=== PATIENT | male | born 1985 | race Caucasian/White ===

== ENCOUNTER 2017-02-25 00:56 | Emergency (ER) | payer MEDICARE, MEDICAID ==
[2017-02-25 01:36] LABS: BARBITURATES NEG (NEG); BENZODIAZEPINES NEG (NEG); CANNABINOIDS NEG (NEG); COCAINE NEG (NEG); METHADONE NEG (NEG); OPIATES NEG (NEG); PHENCYCLIDINE NEG (NEG)
[2017-02-25 01:38] LABS: AMPHETAMINE/METHAMPHETAMINE NEG (NEG)
[2017-02-25 01:43] LABS: BASO # 0.1 x10^3/uL (0.0-0.2); BASO % 1 % (0-3); EOS # 0.1 x10^3/uL (0.0-0.7); EOS % 1 % (0-3); HEMATOCRIT 45.2 % (39.0-53.0); HEMOGLOBIN 15.5 g/dL (13.0-17.5); LYMPH # 2.6 x10^3/uL (1.0-4.8); LYMPH % 21 % (24-48); MEAN CORPUSCULAR HEMOGLOBIN 29 pg (25-35); MEAN CORPUSCULAR HGB CONC 34 g/dL (31-37); MEAN CORPUSCULAR VOLUME 85 fL (79-100); MONO # 1.1 x10^3/uL (0.0-1.1); MONO % 9 % (0-9); NEUT # 8.2 x10^3uL (1.8-7.7); NEUT % 69 % (31-73); PLATELET COUNT 281 x10^3/uL (140-400); RED BLOOD COUNT 5.34 x10^6/uL (4.30-5.70); RED CELL DISTRIBUTION WIDTH 12.8 % (11.5-14.5)
[2017-02-25 01:55] LABS: ALBUMIN 4.1 g/dL (3.4-5.0); ALBUMIN/GLOBULIN RATIO 1.1 (1.0-1.7); CALCIUM 9.5 mg/dL (8.5-10.1); CREATININE 1.2 mg/dL (0.7-1.3); GFR 70.6; POTASSIUM 3.5 mmol/L (3.5-5.1); TOTAL BILIRUBIN 0.6 mg/dL (0.2-1.0)
--- NOTE | 2017-02-25 02:09 | PHYS DOC ---
Adult General Chief Complaint Chief Complaint: SUICDAL IDEATION HPI HPI Patient is a 31-year-old male with a past history of schizoaffective affective disorder, discharged from long term today presents with complaints of suicidal ideation. Upon discharge of the present the patient was told to follow-up [facility] which is something he was planning on doing, patient was standing on a homeless detention he had a problem with his cell phone so he had to walk to a store to try to get that taken care of ladpamela found that he could instead, detention again at which point she started having suicidal ideation. When initially interviewed the patient did not have any specific plans but later on he specify where he was transferred due to the nurse. Patient is currently not taking any medications but he has been told that he should be taking Geodon. Patient denies any drugs or alcohol. Has no other complaints. Review of Systems Review of Systems Constitutional: Denies fever or chills [] Eyes: Denies change in visual acuity, redness, or eye pain [] HENT: Denies nasal congestion or sore throat [] Respiratory: Denies cough or shortness of breath [] Cardiovascular: No chest pain GI: Denies abdominal pain, nausea, vomiting, bloody stools or diarrhea [] : Denies dysuria or hematuria [] Musculoskeletal: Denies back pain or joint pain [] Integument: Denies rash or skin lesions [] Neurologic: Denies headache, focal weakness or sensory changes [] Endocrine: Denies polyuria or polydipsia [] Physical Exam Physical Exam Constitutional: Well developed, well nourished, no acute distress, non-toxic appearance. [] HENT: Normocephalic, atraumatic, oropharynx moist, no oral exudates, nose normal. [] Eyes: EOMI, conjunctiva normal, no discharge. [] Neck: Normal range of motion, no tenderness, supple, no stridor. No LAD, no meningeal signs Cardiovascular:Heart rate regular rhythm, no murmur [] Lungs & Thorax: Bilateral breath sounds clear to auscultation [] Abdomen: Bowel sounds normal, soft, no tenderness, no masses, no pulsatile masses. [] Skin: Warm, dry, no erythema, no rash. [] Back: No tenderness, no CVA tenderness. [] Extremities: No tenderness, no cyanosis, no clubbing, ROM intact, no edema. [] Neurologic: Alert and oriented X 3, normal motor function, no focal deficits noted. [] Psychologic: Affect normal, suicidal ideation, anxious, speaking to himself in the room Current Patient Data Lab Results Laboratory Tests Test 02/25/17 01:05 02/25/17 01:30 Urine Opiates Screen Neg (NEG) Urine Methadone Screen Neg (NEG) Urine Barbiturates Neg (NEG) Urine Phencyclidine Screen Neg (NEG) Urine Amphetamine/Methamphetamine Neg (NEG) Urine Benzodiazepines Screen Neg (NEG) Urine Cocaine Screen Neg (NEG) Urine Cannabinoids Screen Neg (NEG) Urine Ethyl Alcohol Neg (NEG) White Blood Count 12.0 x10^3/uL (4.0-11.0) H Red Blood Count 5.34 x10^6/uL (4.30-5.70) Hemoglobin 15.5 g/dL (13.0-17.5) Hematocrit 45.2 % (39.0-53.0) Mean Corpuscular Volume 85 fL (79-100) Mean Corpuscular Hemoglobin 29 pg (25-35) Mean Corpuscular Hemoglobin Concent 34 g/dL (31-37) Red Cell Distribution Width 12.8 % (11.5-14.5) Platelet Count 281 x10^3/uL (140-400) Neutrophils (%) (Auto) 69 % (31-73) Lymphocytes (%) (Auto) 21 % (24-48) L Monocytes (%) (Auto) 9 % (0-9) Eosinophils (%) (Auto) 1 % (0-3) Basophils (%) (Auto) 1 % (0-3) Neutrophils # (Auto) 8.2 x10^3uL (1.8-7.7) H Lymphocytes # (Auto) 2.6 x10^3/uL (1.0-4.8) Monocytes # (Auto) 1.1 x10^3/uL (0.0-1.1) Eosinophils # (Auto) 0.1 x10^3/uL (0.0-0.7) Basophils # (Auto) 0.1 x10^3/uL (0.0-0.2) Sodium Level 143 mmol/L (136-145) Potassium Level 3.5 mmol/L (3.5-5.1) Chloride Level 106 mmol/L (98-107) Carbon Dioxide Level 29 mmol/L (21-32) Anion Gap 8 (6-14) Blood Urea Nitrogen 13 mg/dL (8-26) Creatinine 1.2 mg/dL (0.7-1.3) Estimated GFR (Cockcroft-Gault) 70.6 BUN/Creatinine Ratio 11 (6-20) Glucose Level 90 mg/dL (70-99) Calcium Level 9.5 mg/dL (8.5-10.1) Total Bilirubin 0.6 mg/dL (0.2-1.0) Aspartate Amino Transferase (AST) 31 U/L (15-37) Alanine Aminotransferase (ALT) 23 U/L (16-63) Alkaline Phosphatase 92 U/L (46-116) Total Protein 8.0 g/dL (6.4-8.2) Albumin 4.1 g/dL (3.4-5.0) Albumin/Globulin Ratio 1.1 (1.0-1.7) EKG EKG 84, sinus rhythm, no STEMI, EP interpretation at 0122 [] Radiology/Procedures Radiology/Procedures [] Course & Med Decision Making Course & Med Decision Making Pertinent Labs and Imaging studies reviewed. (See chart for details). Tele psychiatry will be contacted for evaluation with the patient: they recommend placement. 0359 pt still talking to self. Barbara ordered. Looking for placement for patient. [] Dragon Disclaimer Dragon Disclaimer This chart was dictated in whole or in part using Voice Recognition software in a busy, high-work load, and often noisy Emergency Department environment. It may contain unintended and wholly unrecognized errors or omissions. Departure Departure: Impression: Primary Impression: Schizoaffective disorder Additional Impression: Suicidal ideation Disposition: XFER SHT-TRM HOSP Condition: STABLE Problem Qualifiers Reed WHITMORE MD Feb 25, 2017 02:09
[2017-02-25] MEDS ORDERED: ZIPRASIDONE 20 MG CAPSULE. PO ONE ×2 (04:31→05:57)
[2017-02-25] MEDS ORDERED: ZIPRASIDONE 40 MG CAPSULE. PO ONE (06:00)
--- NOTE | 2017-02-25 06:32 | EKG ---
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
[2017-02-25] MEDS ORDERED: LISI2.5T PO (06:54)
[2017-02-25] MEDS ORDERED: ZIPR80CA2 PO (06:55)
[2017-02-25] MEDS ORDERED: SIMV10TA3 PO (06:59)
[2017-02-25 08:00] VITALS: BP 131/68
[2017-02-25] MEDS ORDERED: ZIPRASIDONE 20 MG CAPSULE. PO SCH ×2 (09:00)
== END 2017-02-25 09:25 | disposition short-term general hospital (02) ==
LOC: ER 00:56
DX: F25.9 Schizoaffective disorder, unspecified (principal); R45.851 Suicidal ideations
CPT/HCPCS: 36415; 80053; 80307; 84443; 85027; 93005; 99285-25; G0479

== ENCOUNTER 2018-03-22 21:29 | Inpatient (IN) | payer MEDICARE, MEDICAID ==
[~2018-03-22] VITALS: Ht 177.8 cm; Wt 107.3 kg
[~2018-03-22 21:29] MED LIST: LISI2.5T PO; SIMV10TA3 PO; ZIPR80CA2 PO
--- NOTE | 2018-03-22 21:42 | ED.ADGEN ---
Past History Past Medical History: Bipolar, High Cholesterol, Hypertension, Schizophrenia Past Surgical History: No Surgical History Alcohol Use: None Drug Use: Methamphetamine Adult General Chief Complaint Chief Complaint ". I took some Gold.. it is a drug .. I made it in my kitchen.. I with the MICHELLE ... I am really on a mission right now.. but the stuff I made it helps me.. .. and Saravanan helped me make it... I do have thoughts of suicide.. but not right this minute.. ". " I am better now that I am here.. I don't have the urge... to kill myself right now.. while you are talking.. but it keeps coming back into my brain.. it may be the radio waves... telling me.. The Gold I made in my kitchen labs. ..helps me get a hard on... there is some in that envelope.. you can test it if you want.... It helps me get a hard on.. and... . It helps my Schizophrenia.. I don't get as tired.. but some times it makes my whole body float away.. To night the entire right side of my body was on fire.. I mean like I dipped the entire Rt. side of my body in acid... or boiling water... ... 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 " I need ice cream to cool down the fire on entire right side of my body.. can I have some Ice cream..."... " I just need... the pharmacy companies of [employer].. to sell my Gold.. it's better than [employer].. ".. " God is directing me.. right now... and Gold I mixed up tonight.. give me a really good hard on..." HPI HPI Patient is a 32 year old male who presents with above hx and complaints mental status change. Pt has hx of Pt a PD referral for abnormal behavior after multiple police calls. Pt. has hx of Schizophrenia and Bipolar disorder. Pt appears to behaving active delusional thoughts.. Pt. does admit to use of unknown drugs he mixed up in his kitchen. Pt. very agitated and restless. Pt reports more intrusive thoughts of suicide this past week. Paramedics advised there has been multiple calls on his obvious bizarre behavior . Review of Systems Review of Systems Constitutional: Denies fever or chills [] Eyes: Denies change in visual acuity, redness, or eye pain [] HENT: Denies nasal congestion or sore throat [] Respiratory: Denies cough or shortness of breath [] Cardiovascular: No additional information not addressed in HPI [] GI: Denies abdominal pain, nausea, vomiting, bloody stools or diarrhea [] : Denies dysuria or hematuria [] Musculoskeletal: Denies back pain or joint pain [] Integument: Denies rash or skin lesions [] Neurologic: Denies headache, focal weakness or sensory changes []Complaints of entire Rt side of body on "fire" after ingestion of unknown drugs. Endocrine: Denies polyuria or polydipsia [] All other systems were reviewed and found to be within normal limits, except as documented in this note. Family History Family History Pt. refuses to give family hx. Current Medications Current Medications Current Medications Medications (Trade) Dose Ordered Sig/Judith Start Time Stop Time Status Last Admin Dose Admin Lactated Ringer's 1,000 ml @ 160 mls/hr [id number] 03/22/18 23:00 03/22/18 23:32 160 MLS/HR Lorazepam (Ativan) 2 mg 1X PRN PRN 03/22/18 23:00 Ondansetron HCl (Zofran) 4 mg PRN Q4HRS PRN 03/22/18 23:00 03/23/18 22:59 Allergies Allergies Allergies Coded Allergies Type Severity Reaction Last Updated Verified No Known Drug Allergies 02/25/17 No Physical Exam Physical Exam Constitutional: in acute emotional distress, very agitated in appearance. [] Pressured speech. Unable to stay on topic. HENT: Normocephalic, atraumatic, bilateral external ears normal, oropharynx moist, no oral exudates, nose normal. [] Eyes: PERRLA, EOMI, conjunctiva normal, no discharge. [] Neck: Normal range of motion, no tenderness, supple, no stridor. [] Cardiovascular:Tachycardia Heart rate regular rhythm, no murmur [] Lungs & Thorax: Bilateral breath sounds equal at apex on auscultation [] Abdomen: Bowel sounds normal, soft, no tenderness, no masses, no pulsatile masses. [] Skin: Warm, dry, no erythema, no rash. [] Back: No tenderness, no CVA tenderness. [] Extremities: No tenderness, no cyanosis, no clubbing, ROM intact, no edema. [] Neurologic: Alert and oriented X 3, normal motor function, normal sensory function, no focal deficits noted. []DTR + 2 patella and brachial. Ambulatory. Psychologic: Affect very agitated, judgement is impairment, mood vacillates between depression and hypermania Current Patient Data Vital Signs Vital Signs Date Time Temp Pulse Resp B/P (MAP) Pulse Ox O2 Delivery O2 Flow Rate FiO2 03/22/18 22:32 94 20 154/101 (118) 99 Room Air 03/22/18 21:29 98.1 Lab Results Laboratory Tests Test 03/22/18 21:38 03/22/18 21:56 Urine Collection Type Unknown Urine Color Yellow Urine Clarity Clear Urine pH 6.0 Urine Specific [place] 1.015 Urine Protein Neg (NEG-TRACE) Urine Glucose (UA) Neg mg/dL (NEG) Urine Ketones (Stick) Neg mg/dL (NEG) Urine Blood Neg (NEG) Urine Nitrite Neg (NEG) Urine Bilirubin Neg (NEG) Urine Urobilinogen Dipstick 0.2 mg/dL (0.2 mg/dL) Urine Leukocyte Esterase Neg (NEG) Urine RBC 0 /HPF (0-2) Urine WBC 0 /HPF (0-4) Urine Squamous Epithelial Cells Occ /LPF Urine Bacteria 0 /HPF (0-FEW) Urine Opiates Screen Neg (NEG) Urine Methadone Screen Neg (NEG) Urine Barbiturates Neg (NEG) Urine Phencyclidine Screen Neg (NEG) Urine Amphetamine/Methamphetamine Pos (NEG) Urine Benzodiazepines Screen Neg (NEG) Urine Cocaine Screen Neg (NEG) Urine Cannabinoids Screen Neg (NEG) Urine Ethyl Alcohol Neg (NEG) White Blood Count 13.8 x10^3/uL (4.0-11.0) H Red Blood Count 5.58 x10^6/uL (4.30-5.70) Hemoglobin 15.8 g/dL (13.0-17.5) Hematocrit 46.3 % (39.0-53.0) Mean Corpuscular Volume 83 fL (79-100) Mean Corpuscular Hemoglobin 28 pg (25-35) Mean Corpuscular Hemoglobin Concent 34 g/dL (31-37) Red Cell Distribution Width 14.4 % (11.5-14.5) Platelet Count 388 x10^3/uL (140-400) Neutrophils (%) (Auto) 68 % (31-73) Lymphocytes (%) (Auto) 20 % (24-48) L Monocytes (%) (Auto) 10 % (0-9) H Eosinophils (%) (Auto) 2 % (0-3) Basophils (%) (Auto) 1 % (0-3) Neutrophils # (Auto) 9.3 x10^3uL (1.8-7.7) H Lymphocytes # (Auto) 2.7 x10^3/uL (1.0-4.8) Monocytes # (Auto) 1.3 x10^3/uL (0.0-1.1) H Eosinophils # (Auto) 0.2 x10^3/uL (0.0-0.7) Basophils # (Auto) 0.2 x10^3/uL (0.0-0.2) Erythrocyte Sedimentation Rate 8 (0-15) Prothrombin Time 9.4 SEC (9.4-11.4) Prothrombin Time INR 0.9 (0.9-1.1) PTT 23 SEC (23-33) Sodium Level 141 mmol/L (136-145) Potassium Level 4.3 mmol/L (3.5-5.1) Chloride Level 105 mmol/L (98-107) Carbon Dioxide Level 28 mmol/L (21-32) Anion Gap 8 (6-14) Blood Urea Nitrogen 10 mg/dL (8-26) Creatinine 1.0 mg/dL (0.7-1.3) Estimated GFR (Cockcroft-Gault) 86.6 Glucose Level 108 mg/dL (70-99) H Calcium Level 9.2 mg/dL (8.5-10.1) Magnesium Level 2.2 mg/dL (1.8-2.4) Creatine Kinase 203 U/L (39-308) Creatine Kinase MB (Mass) 2.2 ng/mL (0.0-3.6) Creatine Kinase MB Relative Index 1.1 % (0-4) Troponin I Quantitative < 0.017 ng/mL (0-0.055) PU-Vql-I-Type Natriuretic Peptide 6 pg/mL (0-124) Salicylates Level 4.9 mg/dL (2.8-20.0) Salicylate Last Dose Date Unknown Salicylate Last Dose Time Unknown Acetaminophen Level < 2.0 mcg/mL (10-30) L Acetaminophen Last Dose Date Unknown Acetaminophen Last Dose Time Unknown Ethyl Alcohol Level < 10 mg/dL (0-10) EKG EKG My interpretation EKG shows a sinus rhythm at 93 bpm. There is left axis. Nonspecific contour abnormalities anterior septal region. But no findings acute STEMI of contralateral changes Radiology/Procedures Radiology/Procedures My interpretation CT of head shows no shift, mass, edema, bleed, or fracture.[] Course & Med Decision Making Course & Med Decision Making Pertinent Labs and Imaging studies reviewed. (See chart for details) Discussed presentation, testing and tx. plan with Dr. Lemus- Pt. admitted until possible toxic ingestion - can be determined. Serial neuro checks. Psych consult, telemetry psych or Dr. Carter consult. [] Final Impression Final Impression 1. Ingestion Unknown Substance 2. Psychosis- Acute Exacerbation 3. Suicidal ideation 4. Leukocytosis 5. Methamphetamine Use+ Urine test 6. Mental Status Change 7. Hx. of Bipolar Dragon Disclaimer Dragon Disclaimer This electronic medical record was generated, in whole or in part, using a voice recognition dictation system. KEVIN PARRY MD Mar 22, 2018 21:42
[2018-03-22 22:03] LABS: AMPHETAMINE/METHAMPHETAMINE POS (NEG); BARBITURATES NEG (NEG); BENZODIAZEPINES NEG (NEG); CANNABINOIDS NEG (NEG); COCAINE NEG (NEG); METHADONE NEG (NEG); OPIATES NEG (NEG); PHENCYCLIDINE NEG (NEG)
--- NOTE | 2018-03-22 22:05 | EKG ---
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
[2018-03-22 22:13] LABS: BASO # 0.2 x10^3/uL (0.0-0.2); BASO % 1 % (0-3); EOS # 0.2 x10^3/uL (0.0-0.7); EOS % 2 % (0-3); HEMATOCRIT 46.3 % (39.0-53.0); HEMOGLOBIN 15.8 g/dL (13.0-17.5); LYMPH # 2.7 x10^3/uL (1.0-4.8); LYMPH % 20 % (24-48); MEAN CORPUSCULAR HEMOGLOBIN 28 pg (25-35); MEAN CORPUSCULAR HGB CONC 34 g/dL (31-37); MEAN CORPUSCULAR VOLUME 83 fL (79-100); MONO # 1.3 x10^3/uL (0.0-1.1); MONO % 10 % (0-9); NEUT # 9.3 x10^3uL (1.8-7.7); NEUT % 68 % (31-73); PLATELET COUNT 388 x10^3/uL (140-400); RED BLOOD COUNT 5.58 x10^6/uL (4.30-5.70); RED CELL DISTRIBUTION WIDTH 14.4 % (11.5-14.5); WHITE BLOOD COUNT 13.8 x10^3/uL (4.0-11.0)
[2018-03-22 22:20] LABS: BILIRUBIN,URINE NEG (NEG); CLARITY,URINE CLEAR; COLOR,URINE YELLOW; GLUCOSE,URINE NEG (NEG)
[2018-03-22 22:21] LABS: BACTERIA,URINE 0 /HPF (0-FEW); NITRITE,URINE NEG (NEG); RBC,URINE 0 /HPF (0-2); SQUAMOUS EPITHELIAL CELL,UR OCC /LPF; UROBILINOGEN,URINE 0.2 mg/dL (0.2 mg/dL); WBC,URINE 0 /HPF (0-4)
[2018-03-22 22:33] LABS: CALCIUM 9.2 mg/dL (8.5-10.1); GFR 86.6; MAGNESIUM 2.2 mg/dL (1.8-2.4)
--- NOTE | 2018-03-22 22:33 | RAD ---
CT Head W/O Contrast: History: Altered mental status, confusion, headache, neck pain Comparison: none Axial images were obtained without contrast. The arboleda and white matter appears normal and symmetrical for the patients age. There is no mass effect, extraaxial fluid collections or hydrocephalus. There is no gross bleed. There is no focal loss of arboleda-white matter distinction to suggest acute ischemia, i.e. stroke. Impression: No acute findings. End impression CT C-Spine without contrast: Clinical History: Altered mental status, confusion, headache, neck pain Technique: Axial helical images of the cervical spine were obtained without contrast, axial coronal and sagittal reconstruction was performed. Findings: There is no loss of vertebral body stature. There is no prevertebral soft tissue swelling. The vertebral bodies are well aligned. The C1-C2 relationship is normal. The visualized osseous structures appear normal. There is reversal of the normal cervical lordosis which can be positional or can be secondary to muscle spasm. Evaluation of the central canal is limited without contrast. Impression: No acute findings. Clinical correlation suggested. PQRS Compliance Statement: One or more of the following individualized dose reduction techniques were utilized for this examination: 1. Automated exposure control 2. Adjustment of the mA and/or kV according to patient size 3. Use of iterative reconstruction technique Electronically signed by: Boo Wong III, MD (03/22/2018 10:30 PM) [id number]
[2018-03-22 22:34] LABS: POTASSIUM 4.3 mmol/L (3.5-5.1)
[2018-03-22] MEDS ORDERED: LORazepam 2 MG/ML VIAL IV ONE (23:00)
[2018-03-22] MEDS ORDERED: ONDANSETRON PF 4 MG/2 ML VIAL. IV PRN (23:00)
[2018-03-22] MEDS ORDERED: LORazepam 2 MG/ML VIAL IV PRN (23:00)
[2018-03-22 23:18] LABS: SEDIMENTATION RATE 8 (0-15)
[2018-03-22] MEDS: IV RINGERS SOLUTION,LACTATED 1,000 ML IV SCH (23:32)
[2018-03-22 23:37] LABS: SALIC 4.9 mg/dL (2.8-20.0)
[2018-03-22 23:38] LABS: ACETAMIN < 2.0 mcg/mL (10-30)
[2018-03-22 23:43] VITALS: BP 139/90
[2018-03-23] MEDS ORDERED: HYDR30TA PO (00:18)
[2018-03-23] MEDS ORDERED: LISD70CA5 PO (00:18)
--- NOTE | 2018-03-23 04:11 | RAD ---
PORTABLE CHEST 1V Clinical Indication: Altered mental status, confusion, headache, neck pain Comparison: None. Findings: The cardiomediastinal silhouette is normal. Lungs are clear. There is no pneumothorax. No pleural effusion is appreciated. No acute bone abnormality. IMPRESSION: No acute cardiopulmonary process. Electronically signed by: Richar Ventura MD (03/23/2018 4:08 AM) [facility]
[2018-03-23 04:14] LABS: BASO # 0.1 x10^3/uL (0.0-0.2); BASO % 1 % (0-3); EOS # 0.2 x10^3/uL (0.0-0.7); EOS % 2 % (0-3); HEMATOCRIT 44.2 % (39.0-53.0); HEMOGLOBIN 15.2 g/dL (13.0-17.5); LYMPH # 2.8 x10^3/uL (1.0-4.8); LYMPH % 25 % (24-48); MEAN CORPUSCULAR HEMOGLOBIN 29 pg (25-35); MEAN CORPUSCULAR HGB CONC 34 g/dL (31-37); MEAN CORPUSCULAR VOLUME 83 fL (79-100); MONO # 0.9 x10^3/uL (0.0-1.1); MONO % 8 % (0-9); NEUT # 7.2 x10^3uL (1.8-7.7); NEUT % 64 % (31-73); PLATELET COUNT 348 x10^3/uL (140-400); RED BLOOD COUNT 5.31 x10^6/uL (4.30-5.70); RED CELL DISTRIBUTION WIDTH 14.3 % (11.5-14.5); WHITE BLOOD COUNT 11.2 x10^3/uL (4.0-11.0)
[2018-03-23 04:30] LABS: GFR 86.6; POTASSIUM 3.7 mmol/L (3.5-5.1)
[2018-03-23 04:31] LABS: SALIC 3.7 mg/dL (2.8-20.0)
[2018-03-23 04:40] LABS: ACETAMIN < 2.0 mcg/mL (10-30)
[2018-03-23 05:28] VITALS: BP 131/81
[2018-03-23] MEDS: IV RINGERS SOLUTION,LACTATED 1,000 ML IV SCH ×3 (06:03→17:30)
[2018-03-23 11:05] VITALS: BP 134/81
[2018-03-23] MEDS ORDERED: CYCLOBENZAPRINE 10 MG TABLET. PO PRN (14:15)
[2018-03-23] MEDS: LORazepam 1 MG TABLET PO PRN (14:41)
[2018-03-23] MEDS ORDERED: ZIPRASIDONE 40 MG CAPSULE. PO SCH ×2 (14:45→21:00)
--- NOTE | 2018-03-23 15:40 | HP ---
ADMIT DATE: 03/23/2018 HISTORY OF PRESENT ILLNESS: The patient is a 32-year-old male patient who came to the Emergency Room complaining that he took some gold, it is a drug that he made in his kitchen, as he works with [employer] and basically he was on a mission and the stuff that he made helps him and that Saravanan helped him make it. He stated that he does have thoughts of suicide, but not right that minute, but the thought of suicide keeps coming back to his brain and he thinks that might be the radio waves telling him the gold that he made in his kitchen helps him get ____ and also basically helps him maintain erection and also helps his schizophrenia. He does not get as tired, but sometimes makes his whole body float away and apparently last night, the whole night, his body was on fire, feeling as if he dipped his entire right side of his body in acid or boiling water and in fact he wanted some ice cream to cool down the entire right side of his body. He actually wanted the pharmacy that makes Barbara to sell his gold as it is better than Geodon and God is the one directing him to make it. The patient was evaluated in the Emergency Room and the paramedics advised that there have been multiple calls on his obvious bizarre behavior. When he arrived, he was extremely agitated and restless and was found to be psychotic. His tox screen was positive for amphetamine, methamphetamine; however, it was negative for all other drugs and was admitted. He was also found to have mild leukocytosis. PAST SURGICAL HISTORY: Significant for bipolar disorder and schizophrenia. FAMILY HISTORY: The patient refused to disclose any information about his family. SOCIAL HISTORY: He said he lives in [place]. He did not elaborate. 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 He claims that he works for [employer]. ALLERGIES: He has no known drug allergies. MEDICATIONS: He stated that he used to be on Vyvanse, Hysingla, and Geodon. Apparently, he was unable to have with him, although he could not specifically tell from where or who prescribed these medications for him. He is actually on Hysingla extended release 30 mg daily and ziprasidone 80 mg once a day and Vyvanse 70 mg daily. REVIEW OF SYSTEMS: Unobtainable. The patient was unwilling to elaborate more. PHYSICAL EXAMINATION: GENERAL: On examining him on arrival, he apparently was restless, agitated, but there were no pallor, jaundice, cyanosis, or thyromegaly. No jugular venous distention. No limb edema. VITAL SIGNS: His heart rate was 96, blood pressure was 151/97, temperature was 98.1, respiratory rate was 18, and oxygen saturation was 96%. HEAD, EYES, EARS, NOSE, AND THROAT: Showed normocephalic, atraumatic. NECK: Supple. HEART: Showed normal first and second heart sounds with no gallop, rub, or murmur. CHEST: Clear to auscultation. No crepitation or rhonchi. ABDOMEN: Distended, soft, nontender. No guarding or rigidity. No organomegaly. All hernial orifices intact. Bowel sounds normal. NEUROLOGIC: He is very agitated, psychotic, but without any obvious lateralizing sign. All his cranial nerves intact. He moves extremities without difficulty. LABORATORY DATA: His lab work on admission showed a white cell count of 13,800, hemoglobin 15.8, hematocrit 46.3, MCV 83, and platelet count of 388,000. His chemistry showed a serum sodium of 141, potassium 4.3, chloride 105, bicarbonate 28, anion gap of 8, BUN 15, creatinine 1, estimated GFR was 86 mL per minute, his glucose was 108. Calcium was 9.2, magnesium 2.2. His CK was 203 and first set of cardiac enzymes showed troponin to be less than 0.017. His prothrombin time was 9.4, INR of 0.9, aPTT was 23. Urinalysis showed the urine was yellow, clear with a pH of 6, specific gravity of 1.015. The urine was negative for protein, glucose, ketones, blood, nitrite, and leukocyte esterase. There are no rbc's, no wbc's, and no bacteria. His tox screen was positive for amphetamine and methamphetamine but was negative for opiate, methadone, barbiturates, phencyclidine, benzodiazepine, cocaine, cannabinoids, and alcohol. ASSESSMENT AND PLAN: The patient was admitted with polysubstance abuse and claims that he has some kind of gold, acute psychosis and suicidal ideation, leukocytosis, methamphetamine abuse, and bipolar/schizophrenia. The patient was given Ativan and IV fluids and will be admitted. We will consult Dr. Carter and perhaps also the [facility]. He apparently was admitted before to [facility] for similar problem. RICHI BELTRÁN MD DR: DAVID/sanaz JOB#: [id number] / [id number]
[2018-03-23 15:52] VITALS: BP 137/79
--- NOTE | 2018-03-23 18:43 | PDOC ---
Exam Note: Dwight Note: Please also refer to the separate dictated note~for this date of service dictated separately.~Patient seen individually. Discussed the patient with Nursing staff reviewed the chart.~Reviewed interim history and current functioning. Reviewed vital signs,~Labs/ Radiology~and current medications noted below. Continue current treatment with the changes noted in the dictated addendum note Assessment: Vital Signs: Vital Signs Date Time Temp Pulse Resp B/P (MAP) Pulse Ox O2 Delivery O2 Flow Rate FiO2 03/23/18 15:52 99.1 79 16 137/79 (98) 94 Room Air I&O Intake and Output 03/23/18 07:00 Intake Total 2680 ml Balance 2680 ml Intake Oral 1680 ml IV Total 1000 ml # Voids 2 Labs: Laboratory Tests Test 03/22/18 21:38 03/22/18 21:56 03/23/18 04:05 Urine Collection Type Unknown Urine Color Yellow Urine Clarity Clear Urine pH 6.0 Urine Specific [place] 1.015 Urine Protein Neg (NEG-TRACE) Urine Glucose (UA) Neg mg/dL (NEG) Urine Ketones (Stick) Neg mg/dL (NEG) Urine Blood Neg (NEG) Urine Nitrite Neg (NEG) Urine Bilirubin Neg (NEG) Urine Urobilinogen Dipstick 0.2 mg/dL (0.2 mg/dL) Urine Leukocyte Esterase Neg (NEG) Urine RBC 0 /HPF (0-2) Urine WBC 0 /HPF (0-4) Urine Squamous Epithelial Cells Occ /LPF Urine Bacteria 0 /HPF (0-FEW) Urine Opiates Screen Neg (NEG) Urine Methadone Screen Neg (NEG) Urine Barbiturates Neg (NEG) Urine Phencyclidine Screen Neg (NEG) Urine Amphetamine/Methamphetamine Pos (NEG) Urine Benzodiazepines Screen Neg (NEG) Urine Cocaine Screen Neg (NEG) Urine Cannabinoids Screen Neg (NEG) Urine Ethyl Alcohol Neg (NEG) White Blood Count 13.8 x10^3/uL (4.0-11.0) H 11.2 x10^3/uL (4.0-11.0) H Red Blood Count 5.58 x10^6/uL (4.30-5.70) 5.31 x10^6/uL (4.30-5.70) Hemoglobin 15.8 g/dL (13.0-17.5) 15.2 g/dL (13.0-17.5) Hematocrit 46.3 % (39.0-53.0) 44.2 % (39.0-53.0) Mean Corpuscular Volume 83 fL (79-100) 83 fL (79-100) Mean Corpuscular Hemoglobin 28 pg (25-35) 29 pg (25-35) Mean Corpuscular Hemoglobin Concent 34 g/dL (31-37) 34 g/dL (31-37) Red Cell Distribution Width 14.4 % (11.5-14.5) 14.3 % (11.5-14.5) Platelet Count 388 x10^3/uL (140-400) 348 x10^3/uL (140-400) Neutrophils (%) (Auto) 68 % (31-73) 64 % (31-73) Lymphocytes (%) (Auto) 20 % (24-48) L 25 % (24-48) Monocytes (%) (Auto) 10 % (0-9) H 8 % (0-9) Eosinophils (%) (Auto) 2 % (0-3) 2 % (0-3) Basophils (%) (Auto) 1 % (0-3) 1 % (0-3) Neutrophils # (Auto) 9.3 x10^3uL (1.8-7.7) H 7.2 x10^3uL (1.8-7.7) Lymphocytes # (Auto) 2.7 x10^3/uL (1.0-4.8) 2.8 x10^3/uL (1.0-4.8) Monocytes # (Auto) 1.3 x10^3/uL (0.0-1.1) H 0.9 x10^3/uL (0.0-1.1) Eosinophils # (Auto) 0.2 x10^3/uL (0.0-0.7) 0.2 x10^3/uL (0.0-0.7) Basophils # (Auto) 0.2 x10^3/uL (0.0-0.2) 0.1 x10^3/uL (0.0-0.2) Erythrocyte Sedimentation Rate 8 (0-15) Prothrombin Time 9.4 SEC (9.4-11.4) Prothrombin Time INR 0.9 (0.9-1.1) PTT 23 SEC (23-33) Sodium Level 141 mmol/L (136-145) 141 mmol/L (136-145) Potassium Level 4.3 mmol/L (3.5-5.1) 3.7 mmol/L (3.5-5.1) Chloride Level 105 mmol/L (98-107) 106 mmol/L (98-107) Carbon Dioxide Level 28 mmol/L (21-32) 26 mmol/L (21-32) Anion Gap 8 (6-14) 9 (6-14) Blood Urea Nitrogen 10 mg/dL (8-26) 9 mg/dL (8-26) Creatinine 1.0 mg/dL (0.7-1.3) 1.0 mg/dL (0.7-1.3) Estimated GFR (Cockcroft-Gault) 86.6 86.6 Glucose Level 108 mg/dL (70-99) H 130 mg/dL (70-99) H Calcium Level 9.2 mg/dL (8.5-10.1) 9.0 mg/dL (8.5-10.1) Magnesium Level 2.2 mg/dL (1.8-2.4) Creatine Kinase 203 U/L (39-308) Creatine Kinase MB (Mass) 2.2 ng/mL (0.0-3.6) Creatine Kinase MB Relative Index 1.1 % (0-4) Troponin I Quantitative < 0.017 ng/mL (0-0.055) MO-Pbu-J-Type Natriuretic Peptide 6 pg/mL (0-124) Salicylates Level 4.9 mg/dL (2.8-20.0) 3.7 mg/dL (2.8-20.0) Salicylate Last Dose Date Unknown Unknown Salicylate Last Dose Time Unknown Unknown Acetaminophen Level < 2.0 mcg/mL (10-30) L < 2.0 mcg/mL (10-30) L Acetaminophen Last Dose Date Unknown Unknown Acetaminophen Last Dose Time Unknown Unknown Ethyl Alcohol Level < 10 mg/dL (0-10) Current Medications: Meds: Current Medications Ondansetron HCl (Zofran) 4 mg PRN Q4HRS PRN IV NAUSEA/VOMITING; Start 03/22/18 at 23:00; Stop 03/23/18 at 22:59 Lorazepam (Ativan) 2 mg 1X ONCE IV Last administered on 03/22/18at 23:32; Start 03/22/18 at 23:00; Stop 03/22/18 at 23:06; Status DC Lorazepam (Ativan) 2 mg 1X PRN PRN IV severe agitation; Start 03/22/18 at 23:00 Lactated Ringer's 1,000 ml @ 160 mls/hr Q6H15M IV Last administered on at 12:19; Start 03/22/18 at 23:00 Lorazepam (Ativan) 2 mg PRN Q4HRS PRN PO ANXIETY / AGITATION Last administered on 03/23/18at 14:41; Start 03/23/18 at 14:15 Cyclobenzaprine HCl (Flexeril) 10 mg PRN Q6HRS PRN PO MUSCLE SPASMS Last administered on 03/23/18at 14:41; Start 03/23/18 at 14:15 Ziprasidone (Geodon) 40 mg DAILY PO ; Start 03/23/18 at 14:45; Stop 03/23/18 at 15:36; Status DC Ziprasidone (Geodon) 40 mg HS PO ; Start 03/23/18 at 21:00 Active Scripts Active Reported Hysingla ER (Hydrocodone Bitartrate) 30 Mg Tab.er.24h 30 Mg PO DAILY Vyvanse (Lisdexamfetamine Dimesylate) 70 Mg Capsule 1 Tab PO DAILY Geodon (Ziprasidone Hcl) 80 Mg Capsule 80 Mg PO I have reviewed the current psychotropics carefully including drug interactions. Risk benefit ratio favors no change other than as noted in my dictated progress note. Diagnosis: Problems: (1) Schizoaffective disorder, bipolar type (2) Schizophrenia, disorganized, subchronic with acute exacerbation (3) Psychosis, atypical LINDSAY JONES MD Mar 23, 2018 18:43
[2018-03-23 19:57] VITALS: BP 128/87
[2018-03-23 23:34] VITALS: BP 137/90
[2018-03-24] MEDS: IV RINGERS SOLUTION,LACTATED 1,000 ML IV SCH ×2 (00:58→06:15)
--- NOTE | 2018-03-24 01:47 | PN ---
DATE: 03/23/2018 SUBJECTIVE: The patient is resting flat, comfortably, continued to be extremely psychotic, easily agitated, restless, wanting his Ativan and muscle relaxant to calm him down as he ran out of his Hysingla, Geodon and Vyvanse. He was not really very cooperative and gets very very agitated. PHYSICAL EXAMINATION: GENERAL: However, he was resting flat in bed, in no apparent respiratory distress. No pallor, jaundice, cyanosis or thyromegaly. No jugular venous distention. No limb edema. VITAL SIGNS: His heart rate was 78, blood pressure 134/81, temperature was 97.1, respiratory rate was 16 and oxygen saturation was 94%. HEAD, EYES, EARS, NOSE AND THROAT: Showed normocephalic, atraumatic. NECK: Supple. HEART: Showed normal first and second heart sounds with no gallop, rub or murmur. CHEST: Clear to auscultation. No crepitation or rhonchi. ABDOMEN: Distended, soft, nontender. No guarding or rigidity. No organomegaly. Hernial orifice intact. Bowel sounds normal. NEUROLOGIC: He was awake, alert, responding at times appropriately, gets easily agitated. All his cranial nerves are intact. He moves extremities without difficulty. His intake was 2618, no output was recorded. LABORATORY DATA: His lab work this morning showed a white cell count of 11,200, hemoglobin 15, hematocrit 44, MCV 83 and platelet count 348,000. His chemistry showed a serum sodium 141, potassium 3.7, chloride 106, bicarbonate 26, anion gap of 9, BUN 9, creatinine 1. Estimated GFR was 87 mL per minute. His glucose 130, calcium was 9. ASSESSMENT: Again, the patient continued to be psychotic, very paranoid and delusional, thinks that he is able to communicate with other people, since he works with [employer], he can influence other people. He hears voices of all peoples and can read their mind, all this gives credit to gold that he swallowed yesterday. He has also leukocytosis. Denied any suicidal ideation today. PLAN: My plan is to continue with Ativan and start him on Flexeril. I am not sure that we have Hysingla or Vyvanse here, but we could start him back on his Geodon. I have consulted Dr. Carter and we will also contact the [facility] to come and evaluate him. RICHI BELTRÁN MD DR: DAVID/sanaz JOB#: [id number] / [id number]
[2018-03-24 05:38] VITALS: BP 118/80
[2018-03-24] MEDS: risperiDONE 1 MG TABLET. PO SCH (08:10)
[2018-03-24] MEDS: LORazepam 1 MG TABLET PO PRN ×2 (11:00→22:33)
[2018-03-24 13:09] LABS: BARBITURATES NEG (NEG); BENZODIAZEPINES NEG (NEG); CANNABINOIDS NEG (NEG); COCAINE NEG (NEG); METHADONE NEG (NEG); OPIATES NEG (NEG); PHENCYCLIDINE NEG (NEG)
[2018-03-24 13:13] LABS: AMPHETAMINE/METHAMPHETAMINE POS (NEG)
[2018-03-24 13:57] LABS: HEMATOCRIT 44.2 % (39.0-53.0); HEMOGLOBIN 14.9 g/dL (13.0-17.5); RED BLOOD COUNT 5.32 x10^6/uL (4.30-5.70); WHITE BLOOD COUNT 10.9 x10^3/uL (4.0-11.0)
[2018-03-24 14:11] LABS: ALBUMIN 2.9 g/dL (3.4-5.0); ALBUMIN/GLOBULIN RATIO 0.8 (1.0-1.7); CALCIUM 8.8 mg/dL (8.5-10.1); GFR 86.1; POTASSIUM 4.3 mmol/L (3.5-5.1); TOTAL BILIRUBIN 0.2 mg/dL (0.2-1.0); TOTAL PROTEIN 6.4 g/dL (6.4-8.2)
[2018-03-24 14:43] VITALS: BP 139/88
--- NOTE | 2018-03-24 18:52 | PDOC ---
Exam Note: Dwight Note: Please also refer to the separate dictated note~for this date of service dictated separately.~Patient seen individually. Discussed the patient with Nursing staff reviewed the chart.~Reviewed interim history and current functioning. Reviewed vital signs,~Labs/ Radiology~and current medications noted below. Continue current treatment with the changes noted in the dictated addendum note Assessment: Vital Signs: Vital Signs Date Time Temp Pulse Resp B/P (MAP) Pulse Ox O2 Delivery O2 Flow Rate FiO2 03/24/18 14:43 98.7 56 14 139/88 (105) 94 Room Air I&O Intake and Output 03/24/18 07:00 Intake Total 4274.35 ml Balance 4274.35 ml Intake Oral 1320 ml IV Total 2954.35 ml # Voids 2 Labs: Laboratory Tests Test 03/24/18 12:53 03/24/18 13:52 Urine Opiates Screen Neg (NEG) Urine Methadone Screen Neg (NEG) Urine Barbiturates Neg (NEG) Urine Phencyclidine Screen Neg (NEG) Urine Amphetamine/Methamphetamine Pos (NEG) Urine Benzodiazepines Screen Neg (NEG) Urine Cocaine Screen Neg (NEG) Urine Cannabinoids Screen Neg (NEG) Urine Ethyl Alcohol Neg (NEG) White Blood Count 10.9 x10^3/uL (4.0-11.0) Red Blood Count 5.32 x10^6/uL (4.30-5.70) Hemoglobin 14.9 g/dL (13.0-17.5) Hematocrit 44.2 % (39.0-53.0) Mean Corpuscular Volume 83 fL (79-100) Mean Corpuscular Hemoglobin 28 pg (25-35) Mean Corpuscular Hemoglobin Concent 34 g/dL (31-37) Red Cell Distribution Width 14.0 % (11.5-14.5) Platelet Count 341 x10^3/uL (140-400) Sodium Level 140 mmol/L (136-145) Potassium Level 4.3 mmol/L (3.5-5.1) Chloride Level 106 mmol/L (98-107) Carbon Dioxide Level 30 mmol/L (21-32) Anion Gap 4 (6-14) L Blood Urea Nitrogen 8 mg/dL (8-26) Creatinine 1.0 mg/dL (0.7-1.3) Estimated GFR (Cockcroft-Gault) 86.1 BUN/Creatinine Ratio 8 (6-20) Glucose Level 94 mg/dL (70-99) Calcium Level 8.8 mg/dL (8.5-10.1) Total Bilirubin 0.2 mg/dL (0.2-1.0) Aspartate Amino Transferase (AST) 14 U/L (15-37) L Alanine Aminotransferase (ALT) 24 U/L (16-63) Alkaline Phosphatase 86 U/L (46-116) Creatine Kinase 76 U/L (39-308) Total Protein 6.4 g/dL (6.4-8.2) Albumin 2.9 g/dL (3.4-5.0) L Albumin/Globulin Ratio 0.8 (1.0-1.7) L Current Medications: Meds: Current Medications Ondansetron HCl (Zofran) 4 mg PRN Q4HRS PRN IV NAUSEA/VOMITING; Start 03/22/18 at 23:00; Stop 03/23/18 at 23:58; Status DC Lorazepam (Ativan) 2 mg 1X ONCE IV Last administered on 03/22/18at 23:32; Start 03/22/18 at 23:00; Stop 03/22/18 at 23:06; Status DC Lorazepam (Ativan) 2 mg 1X PRN PRN IV severe agitation; Start 03/22/18 at 23:00 Lactated Ringer's 1,000 ml @ 160 mls/hr Q6H15M IV Last administered on at 00:58; Start 03/22/18 at 23:00 Lorazepam (Ativan) 2 mg PRN Q4HRS PRN PO ANXIETY / AGITATION Last administered on 03/24/18at 11:00; Start 03/23/18 at 14:15 Cyclobenzaprine HCl (Flexeril) 10 mg PRN Q6HRS PRN PO MUSCLE SPASMS Last administered on 03/23/18at 14:41; Start 03/23/18 at 14:15 Ziprasidone (Geodon) 40 mg DAILY PO ; Start 03/23/18 at 14:45; Stop 03/23/18 at 15:36; Status DC Ziprasidone (Geodon) 40 mg HS PO Last administered on 03/23/18at 20:22; Start at 21:00; Stop 03/24/18 at 00:31; Status DC Risperidone (RisperDAL) 1 mg DAILY PO ; Start 03/24/18 at 09:00 Active Scripts Active Reported Hysingla ER (Hydrocodone Bitartrate) 30 Mg Tab.er.24h 30 Mg PO DAILY Vyvanse (Lisdexamfetamine Dimesylate) 70 Mg Capsule 1 Tab PO DAILY Geodon (Ziprasidone Hcl) 80 Mg Capsule 80 Mg PO I have reviewed the current psychotropics carefully including drug interactions. Risk benefit ratio favors no change other than as noted in my dictated progress note. Diagnosis: Problems: (1) Schizophrenia, disorganized, subchronic with acute exacerbation (2) Psychosis, atypical (3) Schizoaffective disorder, bipolar type (4) Mental status alteration (5) Psychosis LINDSAY JONES MD Mar 24, 2018 18:52
[2018-03-24 19:25] VITALS: BP 107/64
[2018-03-24 22:23] VITALS: BP 126/79
--- NOTE | 2018-03-24 22:45 | PN ---
DATE: SUBJECTIVE: The patient is a 33-year-old male patient, who came yesterday with acute psychosis, polysubstance abuse, suicidal ideation, leukocytosis, methamphetamine abuse and bipolar/schizophrenia. We started him on IV fluid and also continued with his Ativan and Flexeril. He was seen by Dr. Carter also, he started him on risperidone, although he refused to take it. [facility]. The patient became extremely agitated, restless when he was interrogated by the [facility] sales representative wire rope stating that he is refusing to go to any inpatient psychiatric unit and the [facility] are considering committing him involuntarily to inpatient psychiatric treatment, either in [place] and/or [facility] unit in [place]. When I saw him this afternoon, he was resting flat, sleeping comfortably, in no apparent distress. On the whole, nursing staff stated he has been much less agitated and ____ as long as he is left alone. His appetite is good and he is eating all his meals without any problem. OBJECTIVE: GENERAL: On examining him this afternoon, he looked well and was clearly in no apparent respiratory distress. VITAL SIGNS: His heart rate was 69, blood pressure was 118/80, temperature was 97.6, respiratory rate was 18 and oxygen saturation was 94% on room air. The rest of clinical examination is stable, has not really changed. His toxic screen showed that he was still positive for methamphetamine and negative for all other drugs. ASSESSMENT: Acute psychosis, schizoaffective disorder, bipolar disorder, schizophrenia, disorganized, subchronic with acute exacerbation. PLAN: Continue with IV fluid, continue with Ativan and Flexeril. Ordered lab work today. Await the placement and committing involuntarily to inpatient psychiatric treatment, perhaps in [place] and/or [place]. RICHI BELTRÁN MD DR: DAVID/sanaz JOB#: [id number] / [id number]
--- NOTE | 2018-03-25 01:12 | CONS ---
DATE OF CONSULTATION: 03/23/2018 PSYCHIATRIC CONSULTATION IDENTIFYING DATA: The patient is a 33-year-old male seen in bed 125, [facility] for a psychiatric consult requested by Dr. Lemus on account of the patient's significant psychotic symptoms. The patient seen individually, discussed with nursing staff, reviewed the chart. The patient has been followed outpatient at the [facility] by Dr. Derek Palacios psychiatrist for his schizoaffective disorder, bipolar type versus schizophrenia, chronic, undifferentiated and presented to the Emergency Room with significant psychotic symptoms. He has been hospitalized and I have been asked to consult to make recommendations from a psychiatric standpoint. CHIEF COMPLAINT: "I live at [facility]. 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 I taught myself." HISTORY OF PRESENT ILLNESS: Reportedly, the patient presented to the Emergency Room because he states he took some gold. He relates that it is a drug that he made in his kitchen that he works for the [employer] and basically that he was on a mission and the stuff that he made helps him and that Saravan[employer] helped him to make it. He denies any suicidal or homicidal ideation, but states in the past, he has had some obsessive suicidal thinking. He states he makes gold because it helps him maintain erection and also helps his schizophrenia and does not get as tired. He added that it makes his body float away, and previous night, he believes his body was on fire like he had dipped it in acid or boiling water and wanted some ice cream to cool down the entire right side of his body. He stated he wanted the pharmacy that makes his Geodon to sell his gold as it is better than Geodon and that God is directing him to do this. Apparently, the paramedics had had multiple calls on his obviously bizarre behavior. He is extremely agitated in the ER, restless, found to be psychotic. Toxicology screen was positive for amphetamines, methamphetamine. Rest of the drugs were negative. He was found to have a mild leukocytosis. PAST PSYCHIATRIC HISTORY: He has been seeing Adrien Givens APRN at the [facility] and recently has been seeing Dr. Derek Palacios, psychiatrist for a diagnosis of bipolar disorder and schizoaffective disorder bipolar type, with psychotic features. He has been at [facility] in the recent past for psychotic symptoms. ALLERGIES: Negative. SOCIAL HISTORY: Lives in his own apartment [address] in [place]. He states that he folds his own cigarettes and considers all drugs are food, although he does not drink alcohol. He states he works for the [employer] CURRENT PSYCHOTROPICS: According to the patient, he is on Vyvanse, Hysingla and Geodon 40 mg a day, Vyvanse 70 mg a day. FAMILY HISTORY: Noncontributory. SOCIAL HISTORY: As above. MENTAL STATUS EXAMINATION: The patient was seen in his room. He is lying in bed, turned over, blanket covering him. He is very hesitant in his speech, quite paranoid, related the above gold elements to me. No active suicidal or homicidal ideation. He is reasonably oriented, quite psychotic. Attention span short. Language function intact. Intellect average. Insight limited, judgment marginal. IMPRESSION: Schizoaffective disorder, bipolar type, mixed with psychotic features, questionable history of attention deficit hyperactivity disorder since he is on Vyvanse, but from his history, I am not clear if he truly has this diagnosis. Recent methamphetamine abuse. PLAN: Nursing staff had told me he is not willing to go find the patient's readmission to [facility], but when I questioned the patient on this, he is agreeable to this. Given his extent of psychosis and the fact that he lives alone, he has had multiple calls to the Emergency management system, perhaps it is appropriate that he be transferred to an inpatient psychiatric facility. Apparently, the [facility] is willing to see him outpatient if he is not willing to go inpatient. I have asked the nursing staff to request a screen by the [facility] staff to make appropriate disposition plans. I would also recommend changing the ziprasidone to Risperdal 1 mg p.o. daily for his psychotic symptoms. Perhaps, consideration should be given to using a mood stabilizer Depakote, but I will defer all this to either the Inpatient Psychiatry Service or Dr. Palacios if he were to go outpatient. Dr. Lemus, thank you for the opportunity to participate in your patient's care. MAN Orville JONES MD DR: BERKLEY/sanaz JOB#: [id number] / [id number]
[2018-03-25 05:10] VITALS: BP 132/87
[2018-03-25] MEDS: risperiDONE 1 MG TABLET. PO SCH (08:24)
[2018-03-25 14:03] LABS: AMPHETAMINE/METHAMPHETAMINE POS (NEG); BARBITURATES NEG (NEG); BENZODIAZEPINES NEG (NEG); CANNABINOIDS NEG (NEG); COCAINE NEG (NEG); METHADONE NEG (NEG); OPIATES NEG (NEG); PHENCYCLIDINE NEG (NEG)
[2018-03-25 16:15] VITALS: BP 130/87
[2018-03-25] MEDS: NICOTINE 21MG PATCH. TD SCH (16:21)
[2018-03-25 19:53] VITALS: BP 119/80
[2018-03-25] MEDS: traZODone 100 MG TABLET. PO PRN ×2 (20:26→22:41)
--- NOTE | 2018-03-25 20:57 | PDOC ---
Exam Note: Dwight Note: Please also refer to the separate dictated note~for this date of service dictated separately.~Patient seen individually. Discussed the patient with Nursing staff reviewed the chart.~Reviewed interim history and current functioning. Reviewed vital signs,~Labs/ Radiology~and current medications noted below. Continue current treatment with the changes noted in the dictated addendum note Assessment: Vital Signs: Vital Signs Date Time Temp Pulse Resp B/P (MAP) Pulse Ox O2 Delivery O2 Flow Rate FiO2 03/25/18 19:53 98.7 102 20 119/80 (93) 94 Room Air I&O Intake and Output 03/25/18 07:00 Intake Total 2879 ml Balance 2879 ml Intake Oral 1860 ml IV Total 1019 ml # Voids 2 Labs: Laboratory Tests Test 03/25/18 13:40 Urine Opiates Screen Neg (NEG) Urine Methadone Screen Neg (NEG) Urine Barbiturates Neg (NEG) Urine Phencyclidine Screen Neg (NEG) Urine Amphetamine/Methamphetamine Pos (NEG) Urine Benzodiazepines Screen Neg (NEG) Urine Cocaine Screen Neg (NEG) Urine Cannabinoids Screen Neg (NEG) Urine Ethyl Alcohol Neg (NEG) Current Medications: Meds: Current Medications Ondansetron HCl (Zofran) 4 mg PRN Q4HRS PRN IV NAUSEA/VOMITING; Start 03/22/18 at 23:00; Stop 03/23/18 at 23:58; Status DC Lorazepam (Ativan) 2 mg 1X ONCE IV Last administered on 03/22/18at 23:32; Start 03/22/18 at 23:00; Stop 03/22/18 at 23:06; Status DC Lorazepam (Ativan) 2 mg 1X PRN PRN IV severe agitation Last administered on at 18:28; Start 03/22/18 at 23:00 Lactated Ringer's 1,000 ml @ 160 mls/hr Q6H15M IV Last administered on at 00:58; Start 03/22/18 at 23:00; Stop 03/24/18 at 22:57; Status DC Lorazepam (Ativan) 2 mg PRN Q4HRS PRN PO ANXIETY / AGITATION Last administered on 03/24/18at 22:33; Start 03/23/18 at 14:15 Cyclobenzaprine HCl (Flexeril) 10 mg PRN Q6HRS PRN PO MUSCLE SPASMS Last administered on 03/23/18at 14:41; Start 03/23/18 at 14:15 Ziprasidone (Geodon) 40 mg DAILY PO ; Start 03/23/18 at 14:45; Stop 03/23/18 at 15:36; Status DC Ziprasidone (Geodon) 40 mg HS PO Last administered on 03/23/18at 20:22; Start at 21:00; Stop 03/24/18 at 00:31; Status DC Risperidone (RisperDAL) 1 mg DAILY PO ; Start 03/24/18 at 09:00 Nicotine (Nicoderm Cq 21mg) 1 patch DAILY TD Last administered on 03/25/18at 16: 21; Start 03/25/18 at 16:30 Trazodone HCl (Desyrel) 100 mg PRN QHS PRN PO INSOMNIA, MAY REPEAT X1 Last administered on 03/25/18at 20:26; Start 03/25/18 at 19:15 Active Scripts Active Reported Hysingla ER (Hydrocodone Bitartrate) 30 Mg Tab.er.24h 30 Mg PO DAILY Vyvanse (Lisdexamfetamine Dimesylate) 70 Mg Capsule 1 Tab PO DAILY Geodon (Ziprasidone Hcl) 80 Mg Capsule 80 Mg PO I have reviewed the current psychotropics carefully including drug interactions. Risk benefit ratio favors no change other than as noted in my dictated progress note. Diagnosis: Problems: (1) Psychosis (2) Mental status alteration (3) Schizoaffective disorder, bipolar type (4) Psychosis, atypical (5) Schizophrenia, disorganized, subchronic with acute exacerbation LINDSAY JONES MD Mar 25, 2018 20:57
[2018-03-25] MEDS: LORazepam 1 MG TABLET PO PRN (22:40)
[2018-03-25 22:43] VITALS: BP 122/84
--- NOTE | 2018-03-26 00:29 | PN ---
DATE: SUBJECTIVE: The patient is resting, lying flat in bed, in no apparent distress. He continued to be paranoid, but his amphetamine level in his urine has increased and so we went down and asked him questions, and he denied that he keep anything on him. We actually searched his room and his person and there was nothing there to see. He continued to state, we are lying and/or machine is inaccurate in its measurement. OBJECTIVE: GENERAL: On examining him, he looked pale, but no jaundice or cyanosis. No lymphadenopathy, no thyromegaly. No jugular venous distension. No lower limb edema. VITAL SIGNS: His heart rate was 98, blood pressure 132/87, temperature was 98.2, respiratory rate was 18 and oxygen saturation was 94%. The rest of clinical examination is unremarkable. LABORATORY DATA: However, his amphetamine level continued to be positive. As of yesterday, his white cell count was 10,900, hemoglobin 14, hematocrit 44, MCV 83 and platelet count 341,000. Serum sodium 140, potassium 4.3, chloride 106, bicarbonate 30, anion gap of 4, BUN 8, creatinine 1, estimated GFR was 86 mL per minute. His glucose was 94, calcium was 8.8. Total bilirubin, AST, ALT, alkaline phosphatase were normal. Total protein 6.4 and albumin 2.9. DIAGNOSES: 1. Schizoaffective disorder, bipolar type, mixed with psychotic features. 2. Questionable attention deficit hyperactivity disorder since he is on Vyvanse. 3. Recent methamphetamine abuse. PLAN: [facility] has seen him and he was evaluated for involuntary to be admitted to [place], actually he is sixth in line. RICHI BELTRÁN MD DR: DAVID/sanaz JOB#: [id number] / [id number]
--- NOTE | 2018-03-26 05:37 | PN ---
DATE: 03/24/2018 PSYCHIATRIC PROGRESS NOTE SUBJECTIVE: This note covers elements not covered in my initial note. I have reviewed the patient with the nursing staff. He was [facility] by [facility] and is on a waiting list for [facility]. He has been refusing Risperdal and nursing staff will try and encourage him to accept this for his psychotic symptoms. He remains withdrawn, spends much time in his room. No active suicidal ideation, but he is not very forthcoming and quite labile in his mood. IMPRESSION: Schizoaffective disorder, bipolar type, depressed with psychotic features. Rest unchanged. PLAN: Encourage the patient to take his Risperdal and await placement at [facility]. LINDSAY JONES MD DR: BERKLEY/sanaz JOB#: [id number] / [id number]
[2018-03-26 06:31] VITALS: BP 119/78
[2018-03-26] MEDS: risperiDONE 1 MG TABLET. PO SCH (09:00)
[2018-03-26] MEDS: NICOTINE 21MG PATCH. TD SCH (09:00)
[2018-03-26 10:54] VITALS: BP 113/76
--- NOTE | 2018-03-26 20:46 | DS ---
DATE OF DISCHARGE: 03/26/2018 HOSPITAL COURSE: The patient is a 33-year-old male patient who was admitted on 03/22/2018 with acute psychosis secondary to schizophrenia, disorganized, subchronic with acute exacerbation. On admission, he claimed that he took some kind of gold, it is a drug that he made in the kitchen, as he works with [employer] and basically he was on a mission. The stuff that he made helps him and Saravanan helps him make it. He stated that he does have thoughts of suicide, but not right that minute, but the thoughts of suicide keeps coming back to his brain and he thinks that might be the radio waves telling him the gold that he made in his kitchen helps him. He also stated that his gold helps him maintain erection and helps his schizophrenia. He does not get as tired, but sometimes makes his whole body float away. Apparently last night the whole night the body was on fire feeling as if he dipped his entire right side of the body in acid or boiling water and in fact, he wanted some ice cream to cool him down. He actually wanted the [employer] to sell his gold as it is better than Geodon and God is the one directing him to make it. He was basically evaluated in the Emergency Room. The wrapper layer and examiner soft work advice that there have been multiple calls on his obvious bizarre behavior. When he arrived, he was extremely agitated, restless and was found to be psychotic. His toxic screen was positive for amphetamine, methamphetamine; however, it was negative for other drugs and was admitted. He was found to have mild leukocytosis. He was treated with IV fluid with him back on his Ativan and muscle relaxant. We have followed him closely. He was seen in consultation by Dr. Carter, our psychiatrist and also the [facility] and both recommended that the patient needs to be involuntarily admitted to [facility] for inpatient psychiatric stabilization and I spoke with Dr. Rangel, the psychiatrist at [facility] who kindly accepted him and was discharged for inpatient psychiatric stabilization. PHYSICAL EXAMINATION: GENERAL: When I saw him today, he looked well and was clearly in no apparent respiratory distress. No pallor, jaundice, cyanosis, or thyromegaly. No jugular venous distension. No lower limb edema. VITAL SIGNS: His heart rate was 93, blood pressure 113/76, temperature was 97.9, respiratory rate was 20, and oxygen saturation was 93% on room air. HEAD, EYES, EARS, NOSE AND THROAT: Normocephalic, atraumatic. NECK: Supple. HEART: Showed normal first and second sounds. No gallop, rub or murmur. CHEST: Clear to auscultation. No crepitation or rhonchi. ABDOMEN: Distended, soft, nontender. NEUROLOGIC: He was very confused, restless, agitated at time. All his cranial nerves are intact. He moves extremities without difficulty. LABORATORY DATA: Showed his white cell count was 10,900, hemoglobin 15, hematocrit 44, MCV 83 and platelet count 141,000. His chemistry showed a serum sodium 140, potassium 4.3, chloride 106, bicarbonate 30, anion gap of 4, BUN 8, creatinine 1, estimated GFR was 86 mL per minute, his glucose was 94. Calcium was 8.8. Total bilirubin, AST, ALT, alkaline phosphatase were normal. Total protein was 6.4, albumin 2.9. His prothrombin time was 9.4, INR 0.9, PTT was 23. Urinalysis was essentially unremarkable and toxic screen was positive for amphetamine, methamphetamine, negative for opiates, methadone, barbiturates, phencyclidine, benzodiazepine, cocaine, cannabinoids and alcohol. DISCHARGE MEDICATIONS: He was discharged to continue on his Vyvanse 70 mg once a day, ziprasidone 80 mg once a day, hydrocodone bitartrate or Hysingla extended release 30 mg once a day. FINAL DISCHARGE DIAGNOSES: Acute psychosis, mental status alteration, schizoaffective disorder, bipolar type, psychosis, atypical schizophrenia, disorganized, subchronic with acute exacerbation. RICHI BELTRÁN MD DR: DAVID/sanaz JOB#: [id number] / [id number]
--- NOTE | 2018-03-27 00:28 | PN ---
DATE: 03/25/2018 PSYCHIATRIC PROGRESS NOTE This is a late entry 03/25/2018 covers elements not covered in my initial note. SUBJECTIVE: Discussed with nursing staff during the day and in the evening. The patient is on an involuntary hold initiated by the [facility] and was wanting to leave. Nursing staff have been asked to communicate with the [facility] on this since they are attempting to have him placed at the [facility]. He is a patient of the [facility] and I will leave all of this between him and the [facility]. REVIEW OF SYSTEMS: In the interim, he remains withdrawn in his room, remains intermittently psychotic. MENTAL STATUS EXAM: He is wanting something to help him sleep at night. There is no verbalization of suicidal or homicidal ideation per nursing report, though he remains somewhat paranoid, psychotic. IMPRESSION: Unchanged from initial note. PLAN: Nursing staff will enquire from him what helped him with insomnia in the past and he can either have trazodone 100 mg at bedtime p.r.n., may repeat x 1 and/or Restoril 15 mg at bedtime p.r.n. insomnia, may repeat x 1. Would encourage the [facility] to have him transferred as soon as possible to an appropriate inpatient psychiatric facility for stabilization. LINDSAY JONES MD DR: BERKLEY/sanaz JOB#: [id number] / [id number]
== END 2018-03-26 16:30 | DRG 897 ==
LOC: ER 21:29 → 1 SOUTH 23:00
PROVIDERS: ADMIT Internal Medicine; ATTEND Internal Medicine
DX: F15.10 Other stimulant abuse, uncomplicated (principal); R45.851 Suicidal ideations; F20.1 Disorganized schizophrenia; D72.829 Elevated white blood cell count, unspecified; E78.00 Pure hypercholesterolemia, unspecified; F20.3 Undifferentiated schizophrenia; I10 Essential (primary) hypertension
CPT/HCPCS: 36415; 70450; 71045; 72125; 80048; 80053; 80307; 81001; 82550; 82553; 83735; 83880; 84484; 85025; 85027; 85610; 85651; 85730; 93005; 96374; G0480; G6039; J2060; J7120; 82003; 99285-25; G0479

== ENCOUNTER 2020-02-19 22:01 | Emergency (ER) | payer MEDICAID, MEDICARE ==
[~2020-02-19] VITALS: Ht 177.8 cm; Wt 106.8 kg
[~2020-02-19 22:01] MED LIST changes: +HYDR30TA PO; +LISD70CA5 PO; +SIMV10TA15 PO; -SIMV10TA3 PO
[2020-02-19 23:02] LABS: BASO # 0.1 x10^3/uL (0.0-0.2); BASO % 1 % (0-3); EOS % 0 % (0-3); HEMATOCRIT 45.1 % (39.0-53.0); HEMOGLOBIN 15.1 g/dL (13.0-17.5); LYMPH # 2.1 x10^3/uL (1.0-4.8); LYMPH % 16 % (24-48); MEAN CORPUSCULAR HEMOGLOBIN 30 pg (25-35); MEAN CORPUSCULAR HGB CONC 34 g/dL (31-37); MEAN CORPUSCULAR VOLUME 89 fL (79-100); MONO # 1.1 x10^3/uL (0.0-1.1); MONO % 9 % (0-9); NEUT # 9.7 x10^3uL (1.8-7.7); NEUT % 74 % (31-73); PLATELET COUNT 333 x10^3/uL (140-400); RED BLOOD COUNT 5.08 x10^6/uL (4.30-5.70); RED CELL DISTRIBUTION WIDTH 13.2 % (11.5-14.5); WHITE BLOOD COUNT 13.1 x10^3/uL (4.0-11.0)
[2020-02-19 23:08] LABS: CALCIUM 9.2 mg/dL (8.5-10.1); CREATININE 1.2 mg/dL (0.7-1.3); GFR 69.3; POTASSIUM 3.9 mmol/L (3.5-5.1)
[2020-02-19 23:10] LABS: BACTERIA,URINE FEW /HPF (0-FEW); BILIRUBIN,URINE NEG (NEG); CLARITY,URINE CLEAR; COLOR,URINE YELLOW; GLUCOSE,URINE NEG (NEG); NITRITE,URINE NEG (NEG); RBC,URINE 0 /HPF (0-2); SQUAMOUS EPITHELIAL CELL,UR OCC /LPF; UROBILINOGEN,URINE 0.2 mg/dL (0.2 mg/dL); WBC,URINE 0 /HPF (0-4)
[2020-02-19 23:11] LABS: AMORPHOUS SEDIMENT,UR PRESENT /HPF
[2020-02-19 23:12] LABS: ALBUMIN 4.1 g/dL (3.4-5.0); ALBUMIN/GLOBULIN RATIO 1.1 (1.0-1.7); BARBITURATES NEG (NEG); BENZODIAZEPINES NEG (NEG); CANNABINOIDS NEG (NEG); COCAINE NEG (NEG); METHADONE NEG (NEG); OPIATES NEG (NEG); PHENCYCLIDINE NEG (NEG); TOTAL BILIRUBIN 0.5 mg/dL (0.2-1.0); TOTAL PROTEIN 7.8 g/dL (6.4-8.2)
[2020-02-19 23:15] LABS: AMPHETAMINE/METHAMPHETAMINE POS (NEG)
[2020-02-20] MEDS ORDERED: HALOPERIDOL LACT 5 MG/ML VIAL. IM ONE (00:30)
[2020-02-20] MEDS ORDERED: LORazepam 1 MG TABLET PO ONE (00:30)
[2020-02-20] MEDS ORDERED: QUEtiapine 50 MG TABLET. PO ONE (00:45)
--- NOTE | 2020-02-20 01:10 | PHYS DOC ---
Past History Past Medical History: Schizophrenia (ANDREA HUERTA MD) Past Surgical History: No Surgical History (ANDREA HUERTA MD) Alcohol Use: Rarely Drug Use: Methamphetamine (ANDREA HUERTA MD) Smoking: Cigarettes (FABIAN BERMUDEZ DO) Adult General Chief Complaint Chief Complaint: PSYCH EVALUATION HPI HPI Patient is a 34 year old male with a history of schizoaffective disorder who pr esents with psychosis. Patient did use methamphetamines earlier today. He has a history of schizoaffective disorder. Pressure upper called 911 because he was wandering around the store talking to himself. Patient is talking about how his blood is magic and that aliens are going to dissected him. He intermittently becomes angry and agitated. History is very limited. (ANDREA HUERTA MD) Review of Systems Review of Systems Unable to obtain due to psychosis (ANDREA HUERTA MD) Current Medications Current Medications Current Medications Medications (Trade) Dose Ordered Sig/Judith Start Time Stop Time Status Last Admin Dose Admin Haloperidol Lactate (Haldol) 10 mg 1X ONCE 02/20/20 00:30 02/20/20 00:40 DC 02/20/20 00:34 10 MG Lorazepam (Ativan) 1 mg 1X ONCE 02/20/20 00:30 02/20/20 00:40 DC 02/20/20 00:32 1 MG Quetiapine Fumarate (SEROquel) 50 mg 1X ONCE 02/20/20 00:45 02/20/20 00:46 DC 02/20/20 00:56 50 MG (ANDREA HUERTA MD) Allergies Allergies Allergies Coded Allergies Type Severity Reaction Last Updated Verified No Known Drug Allergies 02/25/17 No (ANDREA HUERTA MD) Physical Exam Physical Exam General: Awake, alert, NAD. Well Nourished, well hydrated. Cooperative HEENT: Atraumatic, EOMI, PERRL, airway patent, moist oral mucosa Neck: Supple, trachea midline Respiratory: CTA bilaterally, normal effort, no wheezing/crackles CV: RRR, no murmur, cap refill <2 GI: Soft, nondistended, nontender, no masses MSK: No obvious deformities Skin: Warm, dry, intact Neuro: A&O x2, speech NL, sensory and motor grossly intact, no focal deficits Psych: Agitated, manic, pressured speech, hallucinations, paranoia (ANDREA HUERTA MD) Physical Exam Constitutional: Well developed, well nourished, no acute distress HENT: Normocephalic, atraumatic Eyes: Conjunctiva normal, no discharge Neck: Normal range of motion, no tenderness, supple Lungs & Thorax: No respiratory distress, equal chest rise and fall Neurologic: Alert and oriented X 3, no focal deficits noted (FABIAN BERMUDEZ DO) Current Patient Data Vital Signs Vital Signs Date Time Temp Pulse Resp B/P (MAP) Pulse Ox O2 Delivery O2 Flow Rate FiO2 02/19/20 22:27 99.0 120 18 160/112 (128) 98 Room Air Lab Results Laboratory Tests Test 02/19/20 22:40 02/19/20 22:45 White Blood Count 13.1 x10^3/uL (4.0-11.0) H Red Blood Count 5.08 x10^6/uL (4.30-5.70) Hemoglobin 15.1 g/dL (13.0-17.5) Hematocrit 45.1 % (39.0-53.0) Mean Corpuscular Volume 89 fL (79-100) Mean Corpuscular Hemoglobin 30 pg (25-35) Mean Corpuscular Hemoglobin Concent 34 g/dL (31-37) Red Cell Distribution Width 13.2 % (11.5-14.5) Platelet Count 333 x10^3/uL (140-400) Neutrophils (%) (Auto) 74 % (31-73) H Lymphocytes (%) (Auto) 16 % (24-48) L Monocytes (%) (Auto) 9 % (0-9) Eosinophils (%) (Auto) 0 % (0-3) Basophils (%) (Auto) 1 % (0-3) Neutrophils # (Auto) 9.7 x10^3uL (1.8-7.7) H Lymphocytes # (Auto) 2.1 x10^3/uL (1.0-4.8) Monocytes # (Auto) 1.1 x10^3/uL (0.0-1.1) Eosinophils # (Auto) 0.0 x10^3/uL (0.0-0.7) Basophils # (Auto) 0.1 x10^3/uL (0.0-0.2) Sodium Level 143 mmol/L (136-145) Potassium Level 3.9 mmol/L (3.5-5.1) Chloride Level 104 mmol/L (98-107) Carbon Dioxide Level 27 mmol/L (21-32) Anion Gap 12 (6-14) Blood Urea Nitrogen 14 mg/dL (8-26) Creatinine 1.2 mg/dL (0.7-1.3) Estimated GFR (Cockcroft-Gault) 69.3 BUN/Creatinine Ratio 12 (6-20) Glucose Level 69 mg/dL (70-99) L Calcium Level 9.2 mg/dL (8.5-10.1) Total Bilirubin 0.5 mg/dL (0.2-1.0) Aspartate Amino Transferase (AST) 21 U/L (15-37) Alanine Aminotransferase (ALT) 57 U/L (16-63) Alkaline Phosphatase 74 U/L (46-116) Total Protein 7.8 g/dL (6.4-8.2) Albumin 4.1 g/dL (3.4-5.0) Albumin/Globulin Ratio 1.1 (1.0-1.7) Urine Opiates Screen Neg (NEG) Urine Methadone Screen Neg (NEG) Urine Barbiturates Neg (NEG) Urine Phencyclidine Screen Neg (NEG) Urine Amphetamine/Methamphetamine Pos (NEG) Urine Benzodiazepines Screen Neg (NEG) Urine Cocaine Screen Neg (NEG) Urine Cannabinoids Screen Neg (NEG) Ethyl Alcohol Level < 10 mg/dL (0-10) Urine Ethyl Alcohol Neg (NEG) Urine Collection Type Unknown Urine Color Yellow Urine Clarity Clear Urine pH 6.0 Urine Specific [place] >=1.030 Urine Protein Neg (NEG-TRACE) Urine Glucose (UA) Neg mg/dL (NEG) Urine Ketones (Stick) Neg mg/dL (NEG) Urine Blood Neg (NEG) Urine Nitrite Neg (NEG) Urine Bilirubin Neg (NEG) Urine Urobilinogen Dipstick 0.2 mg/dL (0.2 mg/dL) Urine Leukocyte Esterase Neg (NEG) Urine RBC 0 /HPF (0-2) Urine WBC 0 /HPF (0-4) Urine Squamous Epithelial Cells Occ /LPF Urine Transitional Epithelial Cells Occ /LPF Urine Renal Epithelial Cells Occ /LPF Urine Amorphous Sediment Present /HPF Urine Bacteria Few /HPF (0-FEW) Urine Mucus Slight /LPF (ANDREA HUERTA MD) EKG EKG [] (ANDREA HUERTA MD) Radiology/Procedures Radiology/Procedures [] (ANDREA HUERTA MD) Course & Med Decision Making Course & Med Decision Making Pertinent Labs and Imaging studies reviewed. (See chart for details) Patient is a 34-year-old male who presents to the emergency room in acute psychosis. Patient was changed into a gown and his belongings were stored for safety. Patient was observed during his full stay here in the emergency room. He was given Haldol, Seroquel, Ativan for symptom relief. (ANDREA HUERTA MD) Course & Med Decision Making 02/21/20 0600- Sign out received from Dr. Phelps for patient with history of psychosis. Patient deemed to require involuntary inpatient psychiatric services. Labs reviewed. Patient seen and evaluated by myself. Patient awaiting acceptance for involuntary placement. Patient seen and evaluated by myself. Patient sleeping. Patient did start having some increased anxiety while waiting. Ativan PO given. Patient requesting re-evaluation to change from involuntary to voluntary. Patient unable to be changed. Plan for request for involuntary hold to go before telegraphic instrument supervisor in AM. 02/22/20 0600- Sign out given to Dr. Phelps for further evaluation and final disposition. Discussed current findings and plan with patient, who acknowledges understanding and agreement. (FABIAN BERMUDEZ DO) Dragon Disclaimer Dragon Disclaimer This electronic medical record was generated, in whole or in part, using a voice recognition dictation system. (ANDREA HUERTA MD) Departure Departure: Impression: Primary Impression: Acute psychosis Additional Impression: Methamphetamine abuse Condition: STABLE Referrals: MONTSERRAT BECKFORD MD (PCP) Justification of Admission: Justification of Admission: Justification of Admission Dx: Yes (ANDREA HUERTA MD) Justification of Admission Dx: N/A (FABIAN BERMUDEZ DO) Problem Qualifiers ANDREA HUERTA MD Feb 20, 2020 01:10 FABIAN BERMUDEZ DO Feb 22, 2020 00:45
[2020-02-21] MEDS ORDERED: LORazepam 1 MG TABLET PO ONE (13:45)
[2020-02-21] MEDS ORDERED: QUEtiapine 50 MG TABLET. PO ONE (17:30)
[2020-02-22] MEDS ORDERED: QUEtiapine 50 MG TABLET. PO SCH ×2 (09:15→21:00)
[2020-02-22] MEDS: ZIPRASIDONE 40 MG CAPSULE. PO PRN ×2 (10:22→20:58)
[2020-02-22] MEDS ORDERED: LORazepam 1 MG TABLET PO ONE (11:00)
[2020-02-22] MEDS: NICOTINE POLACRILEX GUM 2 MG GUM. BC PRN ×2 (20:03→21:08)
[2020-02-22] MEDS ORDERED: traZODone 50 MG TABLET. PO ONE (21:15)
[2020-02-23] MEDS ORDERED: LORazepam 1 MG TABLET PO PRN (13:15)
[2020-02-23] MEDS: ZIPRASIDONE 40 MG CAPSULE. PO PRN ×2 (14:03→22:25)
[2020-02-23] MEDS: NICOTINE POLACRILEX GUM 2 MG GUM. BC PRN (14:03)
[2020-02-23] MEDS ORDERED: ZIPRASIDONE IM 20 MG VIAL. IM ONE (21:48)
[2020-02-24] MEDS ORDERED: traZODone 50 MG TABLET. PO ONE (01:30)
[2020-02-24] MEDS: NICOTINE POLACRILEX GUM 2 MG GUM. BC PRN (13:07)
[2020-02-24 14:50] VITALS: BP 141/95
== END 2020-02-24 15:14 | disposition home or self-care (01) ==
LOC: ER 22:01
DX: F23 Brief psychotic disorder (principal); F15.10 Other stimulant abuse, uncomplicated; F25.9 Schizoaffective disorder, unspecified; F17.210 Nicotine dependence, cigarettes, uncomplicated
CPT/HCPCS: 36415; 80053; 80307; 81001; 85025; 96372; 99285; G0480; 99283

== ENCOUNTER → 2020-10-19 | Outpatient (CLI) | payer MEDICARE, OTHER ==
--- NOTE | 2020-10-19 09:49 | RAD ---
EXAMINATION: RIGHT UPPER QUADRANT ULTRASOUND CLINICAL HISTORY: Elevated LFTs TECHNIQUE: Sonography of the right upper quadrant was performed. COMPARISON: None FINDINGS: Pancreas: Poorly visualized due to surrounding bowel gas. Liver: - Echotexture: Normal, homogeneous. - Echogenicity: Increased, suggestive of steatosis. - Surface contour: Smooth - Lesions: None. Biliary: No intrahepatic biliary duct dilation. - CBD: 3 mm. - Gallbladder: Normal caliber. - Contents: No cholelithiasis. - Wall: No abnormal thickening. - Other: No pericholecystic fluid. Right Kidney: Measures 9.3 cm in length. No hydronephrosis or focal lesion. Ascites: None. Aorta/IVC: Poorly visualized. IMPRESSION: Findings suggestive of hepatic steatosis. Poorly visualized pancreas. Electronically signed by: Jeff Martínez DO (10/19/2020 9:47 AM) [id number]
== END ==
LOC: US 08:22
PROVIDERS: ATTEND Family Medicine
DX: R94.5 Abnormal results of liver function studies (principal)
CPT/HCPCS: 76705

== ENCOUNTER → 2021-04-18 | Outpatient (CLI) | payer OTHER, MEDICAID ==
[~2021-04-18] MED LIST changes: -LISI2.5T PO; +LISI2.5T12 PO
--- NOTE | 2021-04-19 08:51 | RAD ---
EXAM: Lumbar spine, 4 views. HISTORY: Pain. COMPARISON: None. FINDINGS: 4 views of the lumbar spine are obtained. There is a mild to moderate chronic appearing wed ge compression fracture of L1 with superior endplate Schmorl's node. There is chronic minimal decreas ed vertebral body height at L5. The disc spaces are preserved. There is no listhesis. There is facet arthropathy at the lumbosacral junction. IMPRESSION: 1. Chronic appearing mild to moderate wedge compression fracture with superior endplate Schmorl's nod e at L1 and chronic minimal decreased vertebral body height at L5. 2. Mild degenerative facet arthropathy at the lumbosacral junction. Electronically signed by: Brooke Hinton MD (04/19/2021 8:48 AM) [facility]
== END ==
LOC: RAD 11:38
PROVIDERS: ATTEND Nurse Practitioner Primary Care
DX: M48.8X7 Other specified spondylopathies, lumbosacral region (principal); M48.56XA Collapsed vertebra, not elsewhere classified, lumbar region, initial encounter for fracture; Z91.048 Other nonmedicinal substance allergy status
CPT/HCPCS: 72100

== ENCOUNTER → 2021-04-24 | Outpatient (CLI) | payer OTHER, MEDICAID ==
--- NOTE | 2021-04-25 10:44 | CARD ---
MR#: [id number] Date of Study: 04/24/2021 Ordering Physician: VINCENT STODDARD, Referring Physician: VINCENT STODDARD Tech: Boo Gordon [facility] APPROVED REPORT EXAM: Two-dimensional and M-mode echocardiogram with Doppler and color Doppler. Other Information Quality : AverageHR: 91bpm Rhythm : NSR INDICATION Right Bundle Branch block RISK FACTORS Obesity Smoking 2D DIMENSIONS Left Atrium(2D)3.6 (1.6-4.0cm)IVSd1.0 (0.7-1.1cm) Aortic Root(2D)3.7 (2.0-3.7cm)LVDd5.0 (3.9-5.9cm) LVOT Diameter2.1 (1.8-2.4cm)PWd1.0 (0.7-1.1cm) LVDs2.9 (2.5-4.0cm)FS (%) 41.3 % SV85.4 ml Aortic Valve AoV Peak Charlie.120.6cm/sAoV VTI19.5cm AO Peak GR.5.8mmHgLVOT Peak Charlie.101.7cm/s LVOT VTI 18.01cmAO Mean GR.3mmHg FABIAN (VMAX)2.00ef1KEP (VTI)3.08cm2 Mitral Valve MV E Zgcbqlpw74.7cm/sMV E Peak Gr.2mmHg MV DECEL [id number] A Wnratnnc69.9cm/s MV E Mean Gr.1mmHgE/A Ratio1.3 Pulmonary Valve PV Peak Brvcabgy00.5cm/sPV Peak Grad.4mmHg Tricuspid Valve TR P. Svllmpkp819pq/sTR Peak Gr.17mmHg Pulmonary Vein S1 Hwhyhltf38.3cm/sD2 Ykqtqgmt73.5cm/s LEFT VENTRICLE The left ventricle is normal size. There is normal left ventricular wall thickness. The left ventricu lar systolic function is normal. LV ejection fraction is 55 to 60%. There is normal LV segmental wal l motion. The left ventricular diastolic function and filling is normal for age. No left ventricle th rombus noted on this study. There is no ventricular septal defect visualized. There is no left ventri cular aneurysm. There is no mass noted in the left ventricle. RIGHT VENTRICLE The right ventricle is normal size. There is normal right ventricular wall thickness. The right ventr icular systolic function is normal. ATRIA The left atrium size is normal. The right atrium size is normal. The interatrial septum is intact wit h no evidence for an atrial septal defect or patent foramen ovale as noted on 2-D or Doppler imaging. AORTIC VALVE The aortic valve is normal in structure and function. Doppler and Color Flow revealed no significant aortic regurgitation. There is no significant aortic valvular stenosis. There is no aortic valvular v egetation. MITRAL VALVE The mitral valve is normal in structure and function. There is no evidence of mitral valve prolapse. There is no mitral valve stenosis. Doppler and Color Flow revealed no mitral valve regurgitation note d. TRICUSPID VALVE The tricuspid valve is normal in structure and function. Doppler and Color Flow revealed trace tricus pid regurgitation. The PA pressure was estimated at 22 mmHg. There is no tricuspid valve prolapse or vegetation. There is no tricuspid valve stenosis. PULMONIC VALVE The pulmonary valve is normal in structure and function. Doppler and Color Flow revealed no pulmonic valvular regurgitation. There is no pulmonic valvular stenosis. GREAT VESSELS The aortic root is normal in size. The ascending aorta is normal in size. The pulmonary artery is nor mal. The IVC is normal in size and collapses >50% with inspiration. PERICARDIAL EFFUSION There is no pleural effusion. There is no evidence of significant pericardial effusion. Critical Notification Critical Value: No <Conclusion> The left ventricle is normal size. The left ventricular systolic function is normal. LV ejection fraction is 55 to 60%. Doppler and Color Flow revealed no significant aortic regurgitation. There is no significant aortic valvular stenosis. Doppler and Color Flow revealed no mitral valve regurgitation noted. Doppler and Color Flow revealed trace tricuspid regurgitation. The PA pressure was estimated at 22 mmHg. Signed by : Marquis Covington MD Electronically Approved : 04/25/2021 10:43:40
== END ==
LOC: ECHO 13:42
PROVIDERS: ATTEND Nurse Practitioner Primary Care
DX: I45.10 Unspecified right bundle-branch block (principal); Z87.898 Personal history of other specified conditions
CPT/HCPCS: 93306

== ENCOUNTER 2021-10-18 20:17 | Emergency (ER) | payer MEDICARE, MEDICAID ==
[~2021-10-18] VITALS: Ht 177.8 cm; Wt 131.0 kg
--- NOTE | 2021-10-18 21:16 | PHYS DOC ---
Past History Past Medical History: Schizophrenia Past Surgical History: No Surgical History Smoking: Cigarettes Alcohol Use: Rarely Drug Use: Methamphetamine General Adult EDM: Chief Complaint: BACK PAIN - NO INJURY HPI: HPI: 36-year-old male presents with left low back pain with radiculopathy down into the left leg. The patient had a compression fracture several years ago, but never had any stabilization or other treatment at that time. He has been seeing me some kind of a doctor lately. He had an epidural injection earlier this week. It did not do anything for his radiculopathy though it did make the back pain a little better. He denies any new falls or trauma. He does not like taking pain medication. He tells me that he wants to "get the ball rolling for a more permanent solution". Review of Systems: Review of Systems: Constitutional: Denies fever or chills Eyes: Denies change in visual acuity HENT: Denies nasal congestion or sore throat Respiratory: Denies cough or shortness of breath Cardiovascular: Denies chest pain or edema GI: Denies abdominal pain, nausea, vomiting, bloody stools or diarrhea : Denies dysuria Musculoskeletal: Low back pain, radiculopathy left leg Integument: Denies rash Neurologic: Denies headache, focal weakness or sensory changes Endocrine: Denies polyuria or polydipsia Lymphatic: Denies swollen glands Psychiatric: Denies depression or anxiety Allergies: Allergies: Allergies Coded Allergies Type Severity Reaction Last Updated Verified No Known Drug Allergies 02/25/17 No Physical Exam: PE: Constitutional: Well developed, well nourished, morbidly obese, no acute distress, non-toxic appearance. [] HENT: Normocephalic, atraumatic, bilateral external ears normal, oropharynx moist, no oral exudates, nose normal. [] Eyes: PERRLA, EOMI, conjunctiva normal, no discharge. [] Neck: Normal range of motion, no tenderness, supple, no stridor. [] Cardiovascular: Heart rate regular rhythm, no murmur [] Lungs & Thorax: Bilateral breath sounds clear to auscultation [] Abdomen: Bowel sounds normal, soft, no tenderness, no masses, no pulsatile masses. [] Skin: Warm, dry, no erythema, no rash. [] Back: No tenderness, no CVA tenderness. [] Extremities: No tenderness, no cyanosis, no clubbing, ROM intact, no edema. [] Neurologic: Alert and oriented X 3, normal motor function, normal sensory function, no focal deficits noted. [] Psychologic: Affect normal, judgement normal, mood normal. [] EKG: EKG: [] Radiology/Procedures: Radiology/Procedures: [] Impressions: Exam: Lumbar spine 3 views INDICATION: Pain, radiculopathy history of compression fracture TECHNIQUE: Frontal and lateral views lumbar spine with spot magnification view of the lumbosacral junction Comparisons: None FINDINGS: Persisting compression fracture involving the superior endplate of L1. There is straightening of lumbar spine. No significant spondylotic changes lumbar spine. Visualized paraspinal soft tissues are unremarkable. IMPRESSION: No acute abnormality identified in the lumbar spine Electronically signed by: Agnes Dunham MD (10/18/2021 9:56 PM) [facility] DICTATED AND SIGNED BY: AGNES DUNHAM MD DATE: 10/18/212153 CC: CHASTITY GARCIA DO; SUDEEP SANTOYO MD ~ Heart Score: C/O Chest Pain: N/A Risk Factors: Risk Factors: DM, Current or recent (<one month) smoker, HTN, HLP, family history of CAD, obesity. Risk Scores: Score 0 - 3: 2.5% MACE over next 6 weeks - Discharge Home Score 4 - 6: 20.3% MACE over next 6 weeks - Admit for Clinical Observation Score 7 - 10: 72.7% MACE over next 6 weeks - Early Invasive Strategies Course & Med Decision Making: Course & Med Decision Making Pertinent Labs and Imaging studies reviewed. (See chart for details) The patient has a lumbar spine from April 17 that shows his compression fraction at L1 and #1 at L5. Disc spaces at that time are preserved. I will get a repeat these films for completeness today. The patient's lumbar films do not show any acute changes. The patient just had an epidural injection which presumably had steroids in it. I am hesitant to give him additional steroids. I will discharge him with a prescription for Flexeril. I have advised that he get a referral for a spinal surgeon and discuss further evaluation and possible treatment options. He is stable for discharge at this time. [] Dragon Disclaimer: Aiden Disclaimer: This electronic medical record was generated, in whole or in part, using a voice recognition dictation system. Departure Departure: Impression: Primary Impression: Lumbar back pain with radiculopathy affecting left lower extremity Disposition: HOME / SELF CARE / HOMELESS Condition: STABLE Referrals: SUDEEP SANTOYO MD (PCP) Patient Instructions: Back, Compression Fracture, Lumbosacral Radiculopathy Scripts Cyclobenzaprine Hcl (CYCLOBENZAPRINE HCL) 10 Mg Tablet 1 TAB PO TID PRN for MUSCLE SPASMS, #30 TAB Prov: CHASTITY GARCIA DO 10/18/21 CHASTITY GARCIA DO Oct 18, 2021 21:16
--- NOTE | 2021-10-18 21:58 | RAD ---
Exam: Lumbar spine 3 views INDICATION: Pain, radiculopathy history of compression fracture TECHNIQUE: Frontal and lateral views lumbar spine with spot magnification view of the lumbosacral sri ction Comparisons: None FINDINGS: Persisting compression fracture involving the superior endplate of L1. There is straightening of lumb ar spine. No significant spondylotic changes lumbar spine. Visualized paraspinal soft tissues are unremarkable. IMPRESSION: No acute abnormality identified in the lumbar spine Electronically signed by: Agnes Hou MD (10/18/2021 9:56 PM) [facility]
[2021-10-18 22:05] VITALS: BP 131/81
[2021-10-18] MEDS ORDERED: CYCL10TA19 PO (22:13)
== END 2021-10-18 22:30 | disposition home or self-care (01) ==
LOC: ER 20:17
DX: M54.16 Radiculopathy, lumbar region (principal); F17.210 Nicotine dependence, cigarettes, uncomplicated; F20.9 Schizophrenia, unspecified
CPT/HCPCS: 72100; 99283